=== PATIENT | male | born 1980 | race African-American/Black ===

== ENCOUNTER 2019-06-20 19:26 | Emergency (ER) | payer OTHER ==
[~2019-06-20] VITALS: Ht 175.3 cm; Wt 81.8 kg
[2019-06-20] MEDS ORDERED: ONDANSETRON PF 4 MG/2 ML VIAL. ONE (19:38)
[2019-06-20] MEDS: IV NORMAL SALINE 1000ML BAG 1,000 ML IV ONE ×2 (19:46→20:55)
[2019-06-20] MEDS: ONDANSETRON PF 4 MG/2 ML VIAL. IVP ONE (19:46)
--- NOTE | 2019-06-20 19:53 | PHYS DOC ---
General Adult EDM: Chief Complaint: NAUSEA/VOMITING/DIARRHA HPI: HPI: 39-year-old male with no past medical or surgical history presents with a chief complaint of dizziness associated with nausea and vomiting. Patient states 1 hour prior to arrival he became dizzy and then started having multiple episodes of vomiting. Patient denies any associated headache blurry vision double vision chest pain shortness of breath or abdominal pain. Review of Systems: Review of Systems: Review of systems: Constitutional symptoms- No fever, no chills. Eyes- No Discharge, No Visual Loss Respiratory symptoms- No shortness of breath, No wheezing, No Dyspnea on Exer tion Cardiovascular Systems; No chest pain, No Palpitations, No syncope Gastrointestinal symptoms: NO abdominal pain, positive nausea positive vomiting Genitourinary symptoms: No dysuria. Musculoskeletal symptoms: No back pain No extremity pain. NEUROLOGICAL Symptoms: No headache, no generalized weakness; No focal Weakness positive dizziness Skin; positive diaphoresis, no itch Heart Score: Risk Factors: Risk Factors: DM, Current or recent (<one month) smoker, HTN, HLP, family history of CAD, obesity. Risk Scores: Score 0 - 3: 2.5% MACE over next 6 weeks - Discharge Home Score 4 - 6: 20.3% MACE over next 6 weeks - Admit for Clinical Observation Score 7 - 10: 72.7% MACE over next 6 weeks - Early Invasive Strategies Current Medications: Current Medications Medications (Trade) Dose Ordered Sig/Pacheco Start Time Stop Time Status Last Admin Dose Admin Ondansetron HCl (Zofran) 4 mg STK-MED ONCE 06/20/19 19:38 06/20/19 19:38 DC Sodium Chloride 1,000 ml @ 1,000 mls/hr 1X ONCE 06/20/19 19:45 06/20/19 20:44 06/20/19 19:46 1,000 MLS/HR Allergies: Allergies: Allergies Coded Allergies Type Severity Reaction Last Updated Verified No Known Drug Allergies 06/20/19 No Physical Exam: PE: Constitutional: Well developed, well nourished, no acute distress, non-toxic appearance. [] HENT: Normocephalic, atraumatic, bilateral external ears normal, oropharynx moist, no oral exudates, nose normal. [] Eyes: PERRLA, EOMI, conjunctiva normal, no discharge. [] Neck: Normal range of motion, no tenderness, supple, no stridor. [] Cardiovascular:Heart rate regular rhythm, no murmur [] Lungs & Thorax: Bilateral breath sounds clear to auscultation [] Abdomen: Bowel sounds normal, soft, no tenderness, no masses, no pulsatile masses. [] Skin: Warm, dry, no erythema, no rash. [] Back: No tenderness, no CVA tenderness. [] Extremities: No tenderness, no cyanosis, no clubbing, ROM intact, no edema. [] Neurologic: Alert and oriented X 3, normal motor function, normal sensory function, no focal deficits noted. [] Psychologic: Affect normal, judgement normal, mood normal. [] EKG: EKG: [] Radiology/Procedures: Radiology/Procedures: [] Course & Med Decision Making: Course & Med Decision Making Pertinent Labs and Imaging studies reviewed. (See chart for details) [] Patient was evaluated for chief complaint. Work-up will include CBC CMP lipase. Initial treatment will include Zofran and IV fluids. Patient reevaluated 2047. Patient states he feels much better. Patient did have an episode of vomiting approximately 30 minutes ago. Labs pending will order another liter fluids. Patient continues to deny any headache chest pain or abdominal pain. Further history obtained from the patient. Patient states similar episode approximately 1 week ago. States he thought he ate some bad food. Reevaluation 2128. Patient again states he feels much better. Patient treated with 2 L of IV fluids. Discussed lab findings. Patient elevated lipase 1700. Patient continues to deny any abdominal pain. Patient's creatinine mildly elevated at 1.5. Discussed treatment options which include hospitalization versus discharge home. Patient would prefer discharge home at this time. Patient will be discharged home with Zofran. Patient instructed to increase p.o. fluid. Patient to follow-up with his primary care physician in 2 to 3 days return to the ER if symptoms persist get worse or any new concerning symptoms arise. Lamont Disclaimer: Lamont Disclaimer: This electronic medical record was generated, in whole or in part, using a voice recognition dictation system. Departure Departure Impression: Primary Impression: Nausea & vomiting Additional Impressions: Pancreatitis Renal insufficiency Disposition: HOME, SELF-CARE Referrals: NO PCP (PCP) Scripts Ondansetron Hcl (ZOFRAN) 4 Mg Tablet 1 TAB PO Q6HRS, #14 TAB Prov: COURTNEY SANTILLAN DO 06/20/19 COURTNEY SANTILLAN DO June 20, 2019 19:53
[2019-06-20 20:03] LABS: BASO % 1 % (0-3); EOS # 0.2 x10^3/uL (0.0-0.7); EOS % 3 % (0-3); HEMOGLOBIN 15.3 g/dL (13.0-17.5); LYMPH # 2.4 x10^3/uL (1.0-4.8); LYMPH % 43 % (24-48); MEAN CORPUSCULAR HEMOGLOBIN 33 pg (25-35); MEAN CORPUSCULAR HGB CONC 34 g/dL (31-37); MEAN CORPUSCULAR VOLUME 98 fL (79-100); MONO # 0.5 x10^3/uL (0.0-1.1); MONO % 9 % (0-9); NEUT # 2.4 x10^3/uL (1.8-7.7); NEUT % 44 % (31-73); PLATELET COUNT 200 x10^3/uL (140-400); RED BLOOD COUNT 4.62 x10^6/uL (4.30-5.70); RED CELL DISTRIBUTION WIDTH 13.4 % (11.5-14.5); WHITE BLOOD COUNT 5.5 x10^3/uL (4.0-11.0)
[2019-06-20 20:34] LABS: CALCIUM 8.8 mg/dL (8.5-10.1); CREATININE 1.5 mg/dL (0.7-1.3); GFR 63.7; POTASSIUM 3.5 mmol/L (3.5-5.1)
[2019-06-20 20:39] LABS: ALBUMIN 3.8 g/dL (3.4-5.0); ALBUMIN/GLOBULIN RATIO 1.2 (1.0-1.7); TOTAL BILIRUBIN 0.5 mg/dL (0.2-1.0); TOTAL PROTEIN 7.1 g/dL (6.4-8.2)
[2019-06-20] MEDS ORDERED: ONDA4TAB7 PO (20:51)
[2019-06-20 21:29] VITALS: BP 123/70
== END 2019-06-20 21:55 | disposition home or self-care (01) ==
LOC: ER 19:26
DX: K85.90 Acute pancreatitis without necrosis or infection, unspecified (principal); N28.9 Disorder of kidney and ureter, unspecified; R11.2 Nausea with vomiting, unspecified
CPT/HCPCS: 36415; 80053; 83690; 85025; 96361; 96374; 99285; J2405; J7030